=== PATIENT | male | born 1965 | race Caucasian/White ===

== ENCOUNTER 2016-11-24 17:13 | Inpatient (IN) | payer MEDICARE ==
[2016-11-25 13:22] VITALS: BMI 50.9
[2016-11-25] MEDS ORDERED: HYDROcodone/Acetaminophen 10/325 mg Tablet PO PRN (13:47)
[2016-11-25] MEDS ORDERED: fentaNYL 50 mcg/hour Patch TD SCH (14:00)
[2016-11-25] MEDS: HYDROcodone/Acetaminophen 10/325 mg Tablet PO PRN ×2 (14:16→20:17)
[2016-11-25] MEDS: Gabapentin 300 MG CAP PO SCH ×2 (17:14→20:56)
[2016-11-25] MEDS: Atorvastatin Calcium 10 MG TAB PO SCH (20:56)
[2016-11-25] MEDS: Carvedilol 25 MG TAB PO SCH (20:56)
[2016-11-26] MEDS: Enoxaparin Sodium 40 MG/0.4 ML SYRINGE SC SCH (06:05)
[2016-11-26] MEDS: HYDROcodone/Acetaminophen 10/325 mg Tablet PO PRN ×3 (06:09→21:41)
[2016-11-26] MEDS: Gabapentin 300 MG CAP PO SCH ×4 (09:11→21:42)
[2016-11-26] MEDS: Losartan Potassium 50 MG TAB PO SCH (09:11)
[2016-11-26] MEDS: Hydrochlorothiazide 25 MG TAB PO SCH (09:12)
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
[2016-11-26] MEDS: fentaNYL 50 mcg/hour Patch TD SCH (11:06)
[2016-11-26] MEDS: Atorvastatin Calcium 10 MG TAB PO SCH (21:42)
[2016-11-26] MEDS: Carvedilol 25 MG TAB PO SCH (21:42)
[2016-11-27] MEDS: Enoxaparin Sodium 40 MG/0.4 ML SYRINGE SC SCH (05:51)
[2016-11-27] MEDS: HYDROcodone/Acetaminophen 10/325 mg Tablet PO PRN ×3 (05:56→18:03)
[2016-11-27] MEDS: Gabapentin 300 MG CAP PO SCH ×4 (09:04→21:34)
[2016-11-27] MEDS: Losartan Potassium 50 MG TAB PO SCH (09:05)
[2016-11-27] MEDS: Hydrochlorothiazide 25 MG TAB PO SCH (09:05)
[2016-11-27] MEDS ORDERED: Ibuprofen 800 MG TAB ONE (12:30)
[2016-11-27] MEDS ORDERED: Clindamycin 150 MG CAP ONE (12:30)
[2016-11-27] MEDS: Atorvastatin Calcium 10 MG TAB PO SCH (21:34)
[2016-11-27] MEDS: Carvedilol 25 MG TAB PO SCH (21:34)
[2016-11-28] MEDS: HYDROcodone/Acetaminophen 10/325 mg Tablet PO PRN ×4 (00:25→18:49)
[2016-11-28] MEDS: traZODone HCl 50 MG TAB PO PRN (02:35)
[2016-11-28] MEDS: Enoxaparin Sodium 40 MG/0.4 ML SYRINGE SC SCH (05:23)
[2016-11-28] MEDS: Losartan Potassium 50 MG TAB PO SCH (09:14)
[2016-11-28] MEDS: Hydrochlorothiazide 25 MG TAB PO SCH (09:14)
[2016-11-28] MEDS: Gabapentin 300 MG CAP PO SCH ×4 (09:15→20:56)
[2016-11-28] MEDS: Carvedilol 25 MG TAB PO SCH (20:56)
[2016-11-28] MEDS: Atorvastatin Calcium 10 MG TAB PO SCH (20:56)
[2016-11-29] MEDS: HYDROcodone/Acetaminophen 10/325 mg Tablet PO PRN ×4 (00:13→23:33)
[2016-11-29] MEDS: Enoxaparin Sodium 40 MG/0.4 ML SYRINGE SC SCH (05:36)
[2016-11-29] MEDS: Losartan Potassium 50 MG TAB PO SCH (08:59)
[2016-11-29] MEDS: Hydrochlorothiazide 25 MG TAB PO SCH (08:59)
[2016-11-29] MEDS: Gabapentin 300 MG CAP PO SCH ×4 (09:00→22:02)
[2016-11-29] MEDS: fentaNYL 50 mcg/hour Patch TD SCH (11:31)
[2016-11-29] MEDS: Carvedilol 25 MG TAB PO SCH (22:01)
[2016-11-29] MEDS: Atorvastatin Calcium 10 MG TAB PO SCH (22:02)
[2016-11-30] MEDS: Enoxaparin Sodium 40 MG/0.4 ML SYRINGE SC SCH (05:36)
[2016-11-30] MEDS: HYDROcodone/Acetaminophen 10/325 mg Tablet PO PRN ×3 (05:42→18:37)
[2016-11-30] MEDS: Losartan Potassium 50 MG TAB PO SCH (09:51)
[2016-11-30] MEDS: Hydrochlorothiazide 25 MG TAB PO SCH (09:52)
[2016-11-30] MEDS: Gabapentin 300 MG CAP PO SCH ×4 (09:52→21:33)
[2016-11-30] MEDS: Carvedilol 25 MG TAB PO SCH (21:33)
[2016-11-30] MEDS: Atorvastatin Calcium 10 MG TAB PO SCH (21:33)
[2016-12-01] MEDS: HYDROcodone/Acetaminophen 10/325 mg Tablet PO PRN ×3 (05:17→19:39)
[2016-12-01] MEDS: Enoxaparin Sodium 40 MG/0.4 ML SYRINGE SC SCH (05:19)
[2016-12-01] MEDS: Hydrochlorothiazide 25 MG TAB PO SCH (09:14)
[2016-12-01] MEDS: Gabapentin 300 MG CAP PO SCH ×4 (09:14→21:22)
[2016-12-01] MEDS: Losartan Potassium 50 MG TAB PO SCH (09:15)
[2016-12-01] MEDS ORDERED: HYDROcodone/Acetaminophen 10/325 mg Tablet ONE (19:30)
[2016-12-01] MEDS: Atorvastatin Calcium 10 MG TAB PO SCH (21:22)
[2016-12-01] MEDS: Carvedilol 25 MG TAB PO SCH (21:22)
[2016-12-02] MEDS ORDERED: HYDROcodone/Acetaminophen 10/325 mg Tablet ONE ×3 (01:42→21:19)
[2016-12-02] MEDS: HYDROcodone/Acetaminophen 10/325 mg Tablet PO PRN ×4 (01:46→21:22)
[2016-12-02] MEDS: Enoxaparin Sodium 40 MG/0.4 ML SYRINGE SC SCH (05:43)
[2016-12-02] MEDS: Hydrochlorothiazide 25 MG TAB PO SCH (08:42)
[2016-12-02] MEDS: Losartan Potassium 50 MG TAB PO SCH (08:42)
[2016-12-02] MEDS: Gabapentin 300 MG CAP PO SCH ×4 (08:44→20:31)
[2016-12-02] MEDS: fentaNYL 50 mcg/hour Patch TD SCH (11:06)
[2016-12-02] MEDS: Atorvastatin Calcium 10 MG TAB PO SCH (20:31)
[2016-12-02] MEDS: Carvedilol 25 MG TAB PO SCH (20:31)
[2016-12-03] MEDS: HYDROcodone/Acetaminophen 10/325 mg Tablet PO PRN ×4 (03:34→21:24)
[2016-12-03] MEDS: Enoxaparin Sodium 40 MG/0.4 ML SYRINGE SC SCH (05:56)
[2016-12-03] MEDS: Gabapentin 300 MG CAP PO SCH ×4 (09:19→20:45)
[2016-12-03] MEDS: Losartan Potassium 50 MG TAB PO SCH (09:19)
[2016-12-03] MEDS: Hydrochlorothiazide 25 MG TAB PO SCH (09:20)
[2016-12-03] MEDS: Carvedilol 25 MG TAB PO SCH (20:45)
[2016-12-03] MEDS: Atorvastatin Calcium 10 MG TAB PO SCH (20:45)
[2016-12-04] MEDS: HYDROcodone/Acetaminophen 10/325 mg Tablet PO PRN ×4 (03:49→22:22)
[2016-12-04] MEDS: Enoxaparin Sodium 40 MG/0.4 ML SYRINGE SC SCH (05:35)
[2016-12-04] MEDS: Gabapentin 300 MG CAP PO SCH ×4 (08:24→21:39)
[2016-12-04] MEDS: Losartan Potassium 50 MG TAB PO SCH (08:25)
[2016-12-04] MEDS: Hydrochlorothiazide 25 MG TAB PO SCH (08:25)
[2016-12-04] MEDS: Atorvastatin Calcium 10 MG TAB PO SCH (21:39)
[2016-12-04] MEDS: Carvedilol 25 MG TAB PO SCH (21:39)
[2016-12-05] MEDS: HYDROcodone/Acetaminophen 10/325 mg Tablet PO PRN ×3 (04:52→18:47)
[2016-12-05] MEDS: Enoxaparin Sodium 40 MG/0.4 ML SYRINGE SC SCH (05:01)
[2016-12-05] MEDS: Losartan Potassium 50 MG TAB PO SCH (09:17)
[2016-12-05] MEDS: Hydrochlorothiazide 25 MG TAB PO SCH (09:17)
[2016-12-05] MEDS: Gabapentin 300 MG CAP PO SCH ×4 (09:17→20:11)
[2016-12-05] MEDS: fentaNYL 50 mcg/hour Patch TD SCH ×2 (12:01→13:25)
[2016-12-05] MEDS: Carvedilol 25 MG TAB PO SCH (20:11)
[2016-12-05] MEDS: Atorvastatin Calcium 10 MG TAB PO SCH (20:11)
[2016-12-06] MEDS: HYDROcodone/Acetaminophen 10/325 mg Tablet PO PRN ×4 (00:56→21:14)
[2016-12-06] MEDS: Enoxaparin Sodium 40 MG/0.4 ML SYRINGE SC SCH (05:57)
[2016-12-06] MEDS: Gabapentin 300 MG CAP PO SCH ×4 (09:05→20:09)
[2016-12-06] MEDS: Hydrochlorothiazide 25 MG TAB PO SCH (09:06)
[2016-12-06] MEDS: Losartan Potassium 50 MG TAB PO SCH (09:06)
--- NOTE | 2016-12-06 09:19 | PRG ---
DATE OF SERVICE: 12/03/2016. PRIMARY CARE PHYSICIAN: Davon Alexander M.D., in [place]. ADMITTING PHYSICIAN: Chloé Davis M.D. SUBJECTIVE: He denies any major concerns, he is participating well with physical therapy, he is still nonweightbearing on the right. Still has poor balance, decrease endurance, decreased range of motion and significant pain during physical therapy. He is independent with bed, chair, and toilet transfers. He started stair training with the use of steps, he is able to go up and down backwards 3 times with rolling walker. He has pain that is controlled with current pain regimen. OBJECTIVE: VITAL SIGNS: Blood pressure of 110/60, pulse rate of 56, respiratory rate 18, O2 saturation 93% on room air, temperature of 98.3. GENERAL: The patient is alert, oriented, not in distress. HEENT: Normocephalic, atraumatic. Pupils equally reactive to light, normal conjunctiva. NECK: Supple. Negative for lymphadenopathy. CARDIOVASCULAR: Bradycardic. Negative for murmur, rubs or gallops. CHEST AND LUNGS: Symmetrical expansion. Clear to auscultation bilaterally. ABDOMEN: Flat, normoactive bowel sounds, nontender. EXTREMITIES: Positive for posterior splint on the right lower extremity. Normal range of motion of all other extremity. PSYCHIATRIC: Appropriate affect and demeanor. NEUROLOGIC: Oriented x3. No focal deficits. LABORATORY DATA: Reviewed. ASSESSMENT: 1. Right lower arthritis, status post right ankle arthroplasty. 2. Hypertension. 3. Hyperlipidemia. 4. Former smoker. 5. Chronic back pain. 6. Obesity. PLAN: The patient will continue with skilled, physical and occupational therapy. He will continue to participate with physical therapy to address strength, range of motion, transfers and strengthening, so he progress to home exercises. [facility]
[2016-12-06] MEDS: Carvedilol 25 MG TAB PO SCH (20:09)
[2016-12-06] MEDS: Atorvastatin Calcium 10 MG TAB PO SCH (20:09)
[2016-12-07] MEDS: HYDROcodone/Acetaminophen 10/325 mg Tablet PO PRN ×3 (03:12→19:08)
[2016-12-07] MEDS: Enoxaparin Sodium 40 MG/0.4 ML SYRINGE SC SCH (05:44)
[2016-12-07] MEDS: Gabapentin 300 MG CAP PO SCH ×4 (08:32→20:55)
[2016-12-07] MEDS: Losartan Potassium 50 MG TAB PO SCH (08:32)
[2016-12-07] MEDS: Hydrochlorothiazide 25 MG TAB PO SCH (08:32)
[2016-12-07] MEDS ORDERED: HYDROcodone/Acetaminophen 10/325 mg Tablet ONE (19:04)
[2016-12-07] MEDS: Carvedilol 25 MG TAB PO SCH (20:54)
[2016-12-07] MEDS: Atorvastatin Calcium 10 MG TAB PO SCH (20:54)
[2016-12-08] MEDS ORDERED: HYDROcodone/Acetaminophen 10/325 mg Tablet ONE ×3 (01:22→14:27)
[2016-12-08] MEDS: HYDROcodone/Acetaminophen 10/325 mg Tablet PO PRN ×4 (01:24→20:38)
[2016-12-08] MEDS: Enoxaparin Sodium 40 MG/0.4 ML SYRINGE SC SCH (05:31)
[2016-12-08] MEDS: Hydrochlorothiazide 25 MG TAB PO SCH (08:34)
[2016-12-08] MEDS: Gabapentin 300 MG CAP PO SCH ×4 (08:34→20:38)
[2016-12-08] MEDS: Losartan Potassium 50 MG TAB PO SCH (08:34)
[2016-12-08] MEDS: fentaNYL 50 mcg/hour Patch TD SCH (13:21)
[2016-12-08] MEDS: Carvedilol 25 MG TAB PO SCH (20:38)
[2016-12-08] MEDS: Atorvastatin Calcium 10 MG TAB PO SCH (20:39)
[2016-12-09] MEDS: Enoxaparin Sodium 40 MG/0.4 ML SYRINGE SC SCH (06:07)
[2016-12-09] MEDS: HYDROcodone/Acetaminophen 10/325 mg Tablet PO PRN ×3 (06:10→19:38)
[2016-12-09] MEDS: Hydrochlorothiazide 25 MG TAB PO SCH (08:18)
[2016-12-09] MEDS: Losartan Potassium 50 MG TAB PO SCH (08:18)
[2016-12-09] MEDS: Gabapentin 300 MG CAP PO SCH ×4 (08:18→20:39)
[2016-12-09] MEDS: Atorvastatin Calcium 10 MG TAB PO SCH (20:39)
[2016-12-09] MEDS: Carvedilol 25 MG TAB PO SCH (20:39)
[2016-12-10] MEDS: HYDROcodone/Acetaminophen 10/325 mg Tablet PO PRN ×2 (06:14→11:49)
[2016-12-10] MEDS: Enoxaparin Sodium 40 MG/0.4 ML SYRINGE SC SCH (06:15)
[2016-12-10] MEDS: Gabapentin 300 MG CAP PO SCH ×4 (08:44→20:23)
[2016-12-10] MEDS: Losartan Potassium 50 MG TAB PO SCH (08:44)
[2016-12-10] MEDS: Hydrochlorothiazide 25 MG TAB PO SCH (08:44)
[2016-12-10] MEDS: Carvedilol 25 MG TAB PO SCH (20:23)
[2016-12-10] MEDS: Atorvastatin Calcium 10 MG TAB PO SCH (20:23)
[2016-12-11] MEDS: HYDROcodone/Acetaminophen 10/325 mg Tablet PO PRN ×3 (05:48→18:27)
[2016-12-11] MEDS: Enoxaparin Sodium 40 MG/0.4 ML SYRINGE SC SCH (05:48)
[2016-12-11] MEDS: Gabapentin 300 MG CAP PO SCH ×4 (08:35→20:43)
[2016-12-11] MEDS: Hydrochlorothiazide 25 MG TAB PO SCH (08:35)
[2016-12-11] MEDS: Losartan Potassium 50 MG TAB PO SCH (08:35)
[2016-12-11] MEDS: fentaNYL 50 mcg/hour Patch TD SCH (13:46)
[2016-12-11] MEDS: Carvedilol 25 MG TAB PO SCH (20:43)
[2016-12-11] MEDS: Atorvastatin Calcium 10 MG TAB PO SCH (20:43)
[2016-12-12] MEDS: HYDROcodone/Acetaminophen 10/325 mg Tablet PO PRN ×4 (00:30→21:47)
[2016-12-12] MEDS: Enoxaparin Sodium 40 MG/0.4 ML SYRINGE SC SCH (05:45)
[2016-12-12] MEDS: Losartan Potassium 50 MG TAB PO SCH (08:46)
[2016-12-12] MEDS: Hydrochlorothiazide 25 MG TAB PO SCH (08:47)
[2016-12-12] MEDS: Gabapentin 300 MG CAP PO SCH ×4 (08:47→21:46)
[2016-12-12] MEDS: Carvedilol 25 MG TAB PO SCH (21:46)
[2016-12-12] MEDS: Atorvastatin Calcium 10 MG TAB PO SCH (21:46)
[2016-12-13] MEDS: Enoxaparin Sodium 40 MG/0.4 ML SYRINGE SC SCH (05:08)
[2016-12-13] MEDS: Gabapentin 300 MG CAP PO SCH ×4 (09:06→21:31)
[2016-12-13] MEDS: Losartan Potassium 50 MG TAB PO SCH (09:06)
[2016-12-13] MEDS: Hydrochlorothiazide 25 MG TAB PO SCH (09:07)
[2016-12-13] MEDS: HYDROcodone/Acetaminophen 10/325 mg Tablet PO PRN ×3 (09:07→21:30)
[2016-12-13] MEDS: Atorvastatin Calcium 10 MG TAB PO SCH (21:31)
[2016-12-13] MEDS: Carvedilol 25 MG TAB PO SCH (21:32)
[2016-12-13] MEDS: traZODone HCl 50 MG TAB PO PRN (21:38)
[2016-12-14] MEDS: Enoxaparin Sodium 40 MG/0.4 ML SYRINGE SC SCH (05:47)
[2016-12-14] MEDS: HYDROcodone/Acetaminophen 10/325 mg Tablet PO PRN ×3 (05:47→19:45)
[2016-12-14] MEDS: Losartan Potassium 50 MG TAB PO SCH (11:22)
[2016-12-14] MEDS: Gabapentin 300 MG CAP PO SCH ×4 (11:22→22:13)
[2016-12-14] MEDS: Hydrochlorothiazide 25 MG TAB PO SCH (11:22)
[2016-12-14] MEDS: fentaNYL 50 mcg/hour Patch TD SCH (11:59)
[2016-12-14] MEDS: Carvedilol 25 MG TAB PO SCH (22:13)
[2016-12-14] MEDS: Atorvastatin Calcium 10 MG TAB PO SCH (22:13)
[2016-12-15] MEDS: HYDROcodone/Acetaminophen 10/325 mg Tablet PO PRN ×4 (03:25→22:41)
[2016-12-15] MEDS: Docusate 100 MG CAP PO PRN ×2 (03:30→22:38)
[2016-12-15] MEDS: Enoxaparin Sodium 40 MG/0.4 ML SYRINGE SC SCH (06:12)
[2016-12-15] MEDS: Losartan Potassium 50 MG TAB PO SCH (09:31)
[2016-12-15] MEDS: Hydrochlorothiazide 25 MG TAB PO SCH (09:31)
[2016-12-15] MEDS: Gabapentin 300 MG CAP PO SCH ×4 (09:31→22:08)
[2016-12-15] MEDS: Polyethylene Glycol 3350 17 GM Packet PO PRN (13:58)
[2016-12-15] MEDS: Atorvastatin Calcium 10 MG TAB PO SCH (22:07)
[2016-12-15] MEDS: Carvedilol 25 MG TAB PO SCH (22:07)
[2016-12-16] MEDS: Enoxaparin Sodium 40 MG/0.4 ML SYRINGE SC SCH (05:49)
[2016-12-16] MEDS: HYDROcodone/Acetaminophen 10/325 mg Tablet PO PRN ×3 (05:51→18:26)
[2016-12-16] MEDS: Gabapentin 300 MG CAP PO SCH ×4 (10:15→20:53)
[2016-12-16] MEDS: Hydrochlorothiazide 25 MG TAB PO SCH (10:16)
[2016-12-16] MEDS: Losartan Potassium 50 MG TAB PO SCH (10:16)
[2016-12-16] MEDS: Carvedilol 25 MG TAB PO SCH (20:53)
[2016-12-16] MEDS: Atorvastatin Calcium 10 MG TAB PO SCH (20:53)
--- NOTE | 2016-12-16 21:53 | PRG ---
DATE OF ADMISSION: 11/25/2016 DATE OF SERVICE: 12/12/2016 PRIMARY CARE PHYSICIAN: Davon Alexander M.D., in [place]. ADMITTING PHYSICIAN: Chloé Davis M.D. SUBJECTIVE: He denies any concerns, he is participating well with physical therapy. He walked a total of 236 feet today, still nonweightbearing on right lower extremity, he uses crutches to ambulate. The patient still has poor endurance with walking. He is independent with bed, chair, and toilet transfers. His current pain is well controlled with pain regimen. OBJECTIVE: VITAL SIGNS: Blood pressure of 135/58, pulse rate of 55, temperature of 97.8, respiratory rate of 20. GENERAL: The patient is alert, oriented, not in distress. HEENT: Normocephalic, atraumatic. Pupils equally reactive to light. NECK: Supple. Negative for lymphadenopathy. CARDIOVASCULAR: Bradycardic, negative for murmur, rubs or gallops. CHEST AND LUNGS: Symmetrical expansion. Clear to auscultation. ABDOMEN: Flat, soft, nontender. EXTREMITIES: Positive for right lower extremity cast. Normal range of motion of all other extremities. PSYCHIATRIC: Appropriate affect and demeanor. NEUROLOGIC: Oriented x3, no focal deficits. ASSESSMENT: 1. Status post right ankle arthroplasty. 2. Hypertension. 3. Hyperlipidemia. 4. Former smoker. 5. Chronic back pain. 6. Obesity. PLAN: We will continue with skilled, physical, and occupational therapy. He will continue to work with physical therapy to address strength, range of motion , transfers and strengthening, he will continue with home health with physical therapy likely discharge in the next 2 weeks. ARIEL
[2016-12-17] MEDS: Enoxaparin Sodium 40 MG/0.4 ML SYRINGE SC SCH (05:38)
[2016-12-17] MEDS: Gabapentin 300 MG CAP PO SCH ×4 (09:46→22:11)
[2016-12-17] MEDS: Docusate 100 MG CAP PO PRN (09:46)
[2016-12-17] MEDS: Polyethylene Glycol 3350 17 GM Packet PO PRN (09:46)
[2016-12-17] MEDS: Losartan Potassium 50 MG TAB PO SCH (09:46)
[2016-12-17] MEDS: Hydrochlorothiazide 25 MG TAB PO SCH (09:47)
[2016-12-17] MEDS: HYDROcodone/Acetaminophen 10/325 mg Tablet PO PRN ×3 (09:54→22:11)
[2016-12-17] MEDS: fentaNYL 50 mcg/hour Patch TD SCH (16:04)
[2016-12-17] MEDS: Carvedilol 25 MG TAB PO SCH (22:10)
[2016-12-17] MEDS: Atorvastatin Calcium 10 MG TAB PO SCH (22:10)
[2016-12-18] MEDS: HYDROcodone/Acetaminophen 10/325 mg Tablet PO PRN ×3 (06:27→18:48)
[2016-12-18] MEDS: Enoxaparin Sodium 40 MG/0.4 ML SYRINGE SC SCH (06:27)
[2016-12-18] MEDS: Losartan Potassium 50 MG TAB PO SCH (09:07)
[2016-12-18] MEDS: Hydrochlorothiazide 25 MG TAB PO SCH (09:07)
[2016-12-18] MEDS: Gabapentin 300 MG CAP PO SCH ×4 (09:07→21:20)
[2016-12-18] MEDS: Carvedilol 25 MG TAB PO SCH (21:20)
[2016-12-18] MEDS: Atorvastatin Calcium 10 MG TAB PO SCH (21:20)
[2016-12-19] MEDS: Enoxaparin Sodium 40 MG/0.4 ML SYRINGE SC SCH (05:28)
[2016-12-19] MEDS: HYDROcodone/Acetaminophen 10/325 mg Tablet PO PRN ×3 (05:28→18:52)
[2016-12-19] MEDS: Losartan Potassium 50 MG TAB PO SCH (08:33)
[2016-12-19] MEDS: Gabapentin 300 MG CAP PO SCH ×4 (08:33→21:00)
[2016-12-19] MEDS: Hydrochlorothiazide 25 MG TAB PO SCH (08:33)
[2016-12-19] MEDS: Carvedilol 25 MG TAB PO SCH (21:00)
[2016-12-19] MEDS: Atorvastatin Calcium 10 MG TAB PO SCH (21:00)
[2016-12-20] MEDS: Enoxaparin Sodium 40 MG/0.4 ML SYRINGE SC SCH (05:38)
[2016-12-20] MEDS: Losartan Potassium 50 MG TAB PO SCH (08:37)
[2016-12-20] MEDS: Gabapentin 300 MG CAP PO SCH ×4 (08:38→20:14)
[2016-12-20] MEDS: Hydrochlorothiazide 25 MG TAB PO SCH (08:38)
[2016-12-20] MEDS: HYDROcodone/Acetaminophen 10/325 mg Tablet PO PRN ×3 (08:39→20:14)
--- NOTE | 2016-12-20 13:41 | PRG ---
DATE OF SERVICE: 12/20/2016. PRIMARY CARE PHYSICIAN: Dr. Davon Alexander in [place]. ADMITTING PHYSICIAN: Dr. Chloé Davis. SUBJECTIVE: He denies concerns. He is participating well with physical therapy, he walked 90, 108 and 72 feet today, he uses crutches and still requires contact guard assist. He has decrease endura nce and still has poor safety awareness, he has occasional shortness of breath during the therapy. He has difficulty complying with nonweightbearing status on the right lower extremity regarding carrillo sfer and gait has occasional nonweightbearing on the right lower extremity. However, he was able to tolerate longer gait distances with standing rest breaks. His current pain is well controlled. OBJECTIVE: VITAL SIGNS: Blood pressure of 106/70, pulse rate of 60, respiratory rate of 18, O2 saturation 95% and temperature of 98.2. GENERAL: The patient is alert, oriented, not in respiratory distress. HEENT: Normocephalic, atraumatic. Pupils equally reactive to light. NECK: Supple. Negative for lymphadenopathy. CARDIOVASCULAR: Regular rate and rhythm. Negative for murmur. ABDOMEN: Flat, soft, nontender, normoactive bowel sounds. EXTREMITIES: Positive for right lower extremity cast. Normal range of motion of other extremities. PSYCHIATRIC: Appropriate affect and demeanor. NEUROLOGIC: Oriented x3. No focal deficits. ASSESSMENT: 1. Status post right ankle arthroplasty. 2. Hypertension. 3. Hyperlipidemia. 4. Former smoker. 5. Chronic back pain. 6. Obesity. PLAN: Continue skilled physical and occupational therapy. He is still on nonweightbearing on the r ight lower leg, continue to work on to address strength, range of motion, transfer training, strengt hening. He will go home with home health with physical therapy, likely discharge in the next week.
[2016-12-20] MEDS: fentaNYL 50 mcg/hour Patch TD SCH (14:06)
[2016-12-20] MEDS: Carvedilol 25 MG TAB PO SCH (20:14)
[2016-12-20] MEDS: Atorvastatin Calcium 10 MG TAB PO SCH (20:14)
[2016-12-20] MEDS: Docusate 100 MG CAP PO PRN (20:19)
[2016-12-21] MEDS: Enoxaparin Sodium 40 MG/0.4 ML SYRINGE SC SCH (05:48)
[2016-12-21] MEDS: Gabapentin 300 MG CAP PO SCH ×4 (09:27→20:40)
[2016-12-21] MEDS: Hydrochlorothiazide 25 MG TAB PO SCH (09:27)
[2016-12-21] MEDS: Losartan Potassium 50 MG TAB PO SCH (09:28)
[2016-12-21] MEDS: HYDROcodone/Acetaminophen 10/325 mg Tablet PO PRN ×2 (09:29→21:50)
[2016-12-21] MEDS: Carvedilol 25 MG TAB PO SCH (20:40)
[2016-12-21] MEDS: Docusate 100 MG CAP PO PRN (20:40)
[2016-12-21] MEDS: Atorvastatin Calcium 10 MG TAB PO SCH (20:40)
[2016-12-22] MEDS: Enoxaparin Sodium 40 MG/0.4 ML SYRINGE SC SCH (05:17)
[2016-12-22] MEDS: Losartan Potassium 50 MG TAB PO SCH (09:43)
[2016-12-22] MEDS: HYDROcodone/Acetaminophen 10/325 mg Tablet PO PRN ×3 (09:44→22:07)
[2016-12-22] MEDS: Gabapentin 300 MG CAP PO SCH ×5 (09:44→21:06)
[2016-12-22] MEDS: Hydrochlorothiazide 25 MG TAB PO SCH (09:44)
[2016-12-22] MEDS: Atorvastatin Calcium 10 MG TAB PO SCH (21:06)
[2016-12-22] MEDS: Carvedilol 25 MG TAB PO SCH (21:06)
[2016-12-22] MEDS: Docusate 100 MG CAP PO PRN (21:07)
[2016-12-23] MEDS: Enoxaparin Sodium 40 MG/0.4 ML SYRINGE SC SCH (05:26)
[2016-12-23] MEDS: Hydrochlorothiazide 25 MG TAB PO SCH (09:40)
[2016-12-23] MEDS: HYDROcodone/Acetaminophen 10/325 mg Tablet PO PRN ×3 (09:40→22:54)
[2016-12-23] MEDS: Losartan Potassium 50 MG TAB PO SCH (09:40)
[2016-12-23] MEDS: Gabapentin 300 MG CAP PO SCH ×4 (09:40→21:03)
[2016-12-23] MEDS: fentaNYL 50 mcg/hour Patch TD SCH (16:51)
[2016-12-23] MEDS: Atorvastatin Calcium 10 MG TAB PO SCH (21:03)
[2016-12-23] MEDS: Carvedilol 25 MG TAB PO SCH (21:03)
[2016-12-24] MEDS: Enoxaparin Sodium 40 MG/0.4 ML SYRINGE SC SCH (06:06)
[2016-12-24] MEDS: Gabapentin 300 MG CAP PO SCH ×4 (10:09→20:24)
[2016-12-24] MEDS: Hydrochlorothiazide 25 MG TAB PO SCH (10:10)
[2016-12-24] MEDS: Losartan Potassium 50 MG TAB PO SCH (10:10)
[2016-12-24] MEDS: HYDROcodone/Acetaminophen 10/325 mg Tablet PO PRN ×2 (10:11→16:03)
[2016-12-24] MEDS: Atorvastatin Calcium 10 MG TAB PO SCH (20:24)
[2016-12-24] MEDS: Carvedilol 25 MG TAB PO SCH (20:26)
[2016-12-25] MEDS: Enoxaparin Sodium 40 MG/0.4 ML SYRINGE SC SCH (05:44)
[2016-12-25 06:25] VITALS: BP 102/54; TEMP 97.7
[2016-12-25] MEDS: HYDROcodone/Acetaminophen 10/325 mg Tablet PO PRN ×2 (06:49→13:08)
[2016-12-25] MEDS: Gabapentin 300 MG CAP PO SCH ×3 (07:51→16:23)
[2016-12-25] MEDS: Losartan Potassium 50 MG TAB PO SCH (07:52)
[2016-12-25] MEDS: Hydrochlorothiazide 25 MG TAB PO SCH (08:20)
== END 2016-12-25 16:30 | disposition home health service (06) | DRG 560 ==
LOC: BURMED 11-25 12:23
PROVIDERS: ADMIT Family Medicine; ATTEND Family Medicine
DX: Z47.1 Aftercare following joint replacement surgery (principal); Z68.43 Body mass index [BMI] 50.0-59.9, adult; I10 Essential (primary) hypertension; Z96.661 Presence of right artificial ankle joint; E78.5 Hyperlipidemia, unspecified; Z87.891 Personal history of nicotine dependence; G89.29 Other chronic pain; M54.9 Dorsalgia, unspecified; M19.071 Primary osteoarthritis, right ankle and foot; E66.9 Obesity, unspecified
CPT/HCPCS: G8978-GP-CK; G8979-GP-CI; G8987-GO-CI; G8987-GO-CK; G8988-GO-CI; J1650